=== PATIENT | female | born 1980 | race Caucasian/White ===

== ENCOUNTER 2021-01-06 14:00 | Inpatient (IN) | payer OTHER ==
[2021-01-06 14:26] VITALS: BMI 23.6
[2021-01-06 17:19] LABS: BASO % 0.6 % (0-2.0); EOS % 1.3 % (0-4.5); HEMATOCRIT 36.8 % (32.4-45.2); LYMPH % 33.9 % (8-40); MCH 26.3 pg (25.7-33.7); MCHC 32.6 g/dl (32.0-36.0); MEAN CELL VOLUME 80.7 fl (80-96); MEAN PLT VOLUME 9.1 fl (7.5-11.1); MONO % 5.7 % (3.8-10.2); NEUT % 58.5 % (42.8-82.8); PLATELET COUNT 220 10^3/uL (134-434); RBC 4.56 M/mm3 (3.60-5.2); RDW 16.7 % (11.6-15.6); WHITE BLOOD COUNT 7.4 K/mm3 (4.0-10.0)
[2021-01-06 17:31] LABS: CALCIUM 8.9 mg/dL (8.5-10.1)
[2021-01-06 17:32] LABS: BLOOD UREA NITROGEN 10.7 mg/dL (7-18)
[2021-01-06 17:35] LABS: CREATININE 0.6 mg/dL (0.55-1.3)
[2021-01-06 17:37] LABS: BILIRUBIN,TOTAL 0.4 mg/dL (0.2-1); TOT PROT 7.7 g/dl (6.4-8.2)
[2021-01-06 17:39] LABS: PHENCYCLIDINE,URINE NEGATIVE (NEGATIVE); URINE AMPHETAMINES NEGATIVE (NEGATIVE)
[2021-01-06 17:40] LABS: COCAINE, UR NEGATIVE (NEGATIVE); HCG,QUALITATIVE URINE Negative; METHADONE, UR NEGATIVE (NEGATIVE); OPIATES, URI NEGATIVE (NEGATIVE); URINE BARBITURATES NEGATIVE (NEGATIVE); URINE BENZODIAZEPINES NEGATIVE (NEGATIVE)
[2021-01-06 17:52] LABS: PH,URINE 5.5 (5.0-8.0); URINE APPEARANCE Clear; URINE BILIRUBIN Negative (NEGATIVE); URINE COLOR Yellow; URINE GLUCOSE (UA) Negative (NEGATIVE); URINE KETONE Negative (NEGATIVE); URINE LEUK ESTERASE 2+ (NEGATIVE); URINE NITRITE Negative (NEGATIVE); URINE PROTEIN Negative (NEGATIVE); URINE UROBILINOGEN 0.2 mg/dL (0.2-1.0)
[2021-01-06 20:13] LABS: EPI CELLS 0-3/HPF /HPF; URINE BACTERIA MANY /hpf (NEGATIVE); URINE RBC 2-5/HPF /hpf (0-4); URINE WBC 5-10/HPF (NEGATIVE)
[2021-01-07 07:29] LABS: BASO % 0.7 % (0-2.0); EOS % 1.9 % (0-4.5); HEMATOCRIT 35.3 % (32.4-45.2); HEMOGLOBIN 11.6 GM/dL (10.7-15.3); LYMPH % 28.9 % (8-40); MCH 26.2 pg (25.7-33.7); MCHC 32.8 g/dl (32.0-36.0); MEAN PLT VOLUME 8.8 fl (7.5-11.1); MONO % 8.5 % (3.8-10.2); PLATELET COUNT 192 10^3/uL (134-434); RBC 4.42 M/mm3 (3.60-5.2); RDW 16.9 % (11.6-15.6); WHITE BLOOD COUNT 4.5 K/mm3 (4.0-10.0)
[2021-01-07 07:49] LABS: BLOOD UREA NITROGEN 12.7 mg/dL (7-18); CALCIUM 8.5 mg/dL (8.5-10.1)
[2021-01-07 07:52] LABS: CHOLESTEROL 185 mg/dL (50-200)
[2021-01-07 07:53] LABS: CREATININE 0.6 mg/dL (0.55-1.3); PHOSPHOROUS 4.3 mg/dL (2.5-4.9); TRIGLYCERIDES 68 mg/dL (0-150)
[2021-01-07 07:54] LABS: LDL CHOLESTEROL (ONLY SJRH) 98 mg/dL (5-100)
[2021-01-07 07:55] LABS: HDL CHOLESTEROL 65 mg/dL (40-60)
[2021-01-07] MEDS: ENOXAPARIN NA (PORCINE) 40 MG/0.4 ML DISP.SYRIN SQ SCH (09:06)
[2021-01-07] MEDS: INSULIN SLIDING SCALE (NOVOLOG) 1 VIAL SQ SCH ×3 (11:06→21:38)
[2021-01-07] MEDS: PANTOPRAZOLE 40 MG TABLET PO SCH (12:05)
[2021-01-07] MEDS: methylPREDNISolone NA SUCC 125 MG/2 ML VIAL IVPB SCH ×3 (12:05→21:36)
[2021-01-08] MEDS: methylPREDNISolone NA SUCC 125 MG/2 ML VIAL IVPB SCH ×4 (03:08→21:46)
[2021-01-08] MEDS: INSULIN SLIDING SCALE (NOVOLOG) 1 VIAL SQ SCH ×4 (06:40→21:48)
[2021-01-08] MEDS: PANTOPRAZOLE 40 MG TABLET PO SCH (09:11)
[2021-01-08] MEDS: ENOXAPARIN NA (PORCINE) 40 MG/0.4 ML DISP.SYRIN SQ SCH (09:11)
[2021-01-08 09:55] LABS: HEMOGLOBIN 11.7 GM/dL (10.7-15.3); LYMPH % 2.4 % (8-40); MCH 25.6 pg (25.7-33.7); MCHC 31.6 g/dl (32.0-36.0); MEAN CELL VOLUME 81.1 fl (80-96); MEAN PLT VOLUME 9.3 fl (7.5-11.1); MONO % 0.6 % (3.8-10.2); PLATELET COUNT 229 10^3/uL (134-434); RBC 4.56 M/mm3 (3.60-5.2); RDW 16.9 % (11.6-15.6); WHITE BLOOD COUNT 18.9 K/mm3 (4.0-10.0)
[2021-01-08 10:18] LABS: CALCIUM 9.3 mg/dL (8.5-10.1)
[2021-01-08 10:19] LABS: ALBUMIN 3.6 g/dl (3.4-5.0); BLOOD UREA NITROGEN 12.1 mg/dL (7-18)
[2021-01-08 10:22] LABS: CREATININE 0.8 mg/dL (0.55-1.3)
[2021-01-08 10:24] LABS: BILIRUBIN,TOTAL 0.5 mg/dL (0.2-1)
[2021-01-08 10:42] LABS: ANISOCYTOSIS 2+; MACROCYTOSIS 0; PLATELET ESTIMATE NORMAL
[2021-01-08] MEDS ORDERED: DEXTROSE 5%-WATER - 50 ML IVPB ONE (12:16)
[2021-01-08] MEDS ORDERED: cefTRIAXone SODIUM 1 GM VIAL ONE (12:16)
[2021-01-08] MEDS: CEFTRIAXONE 1 GM in DEXTROSE 5%-WATER - 50 ML IVPB SCH (12:22)
[2021-01-09] MEDS: methylPREDNISolone NA SUCC 125 MG/2 ML VIAL IVPB SCH ×4 (04:15→21:49)
[2021-01-09] MEDS: INSULIN SLIDING SCALE (NOVOLOG) 1 VIAL SQ SCH ×4 (06:30→21:57)
[2021-01-09 07:46] LABS: BASO % 0.1 % (0-2.0); HEMATOCRIT 34.3 % (32.4-45.2); HEMOGLOBIN 11.2 GM/dL (10.7-15.3); LYMPH % 2.3 % (8-40); MCH 26.2 pg (25.7-33.7); MCHC 32.7 g/dl (32.0-36.0); MEAN CELL VOLUME 80.3 fl (80-96); MEAN PLT VOLUME 9.1 fl (7.5-11.1); MONO % 0.9 % (3.8-10.2); NEUT % 96.7 % (42.8-82.8); PLATELET COUNT 210 10^3/uL (134-434); RBC 4.27 M/mm3 (3.60-5.2); WHITE BLOOD COUNT 21.5 K/mm3 (4.0-10.0)
[2021-01-09 08:10] LABS: ALBUMIN 3.3 g/dl (3.4-5.0); CALCIUM 8.7 mg/dL (8.5-10.1)
[2021-01-09 08:11] LABS: BLOOD UREA NITROGEN 15.1 mg/dL (7-18)
[2021-01-09 08:13] LABS: CREATININE 0.6 mg/dL (0.55-1.3)
[2021-01-09 08:15] LABS: BILIRUBIN,TOTAL 0.3 mg/dL (0.2-1); PHOSPHOROUS 4.4 mg/dL (2.5-4.9); TOT PROT 6.5 g/dl (6.4-8.2)
[2021-01-09] MEDS ORDERED: cefTRIAXone SODIUM 1 GM VIAL ONE (09:01)
[2021-01-09] MEDS ORDERED: DEXTROSE 5%-WATER - 50 ML IVPB ONE (09:01)
[2021-01-09] MEDS: PANTOPRAZOLE 40 MG TABLET PO SCH (09:28)
[2021-01-09] MEDS: CEFTRIAXONE 1 GM in DEXTROSE 5%-WATER - 50 ML IVPB SCH (09:28)
[2021-01-09] MEDS: ENOXAPARIN NA (PORCINE) 40 MG/0.4 ML DISP.SYRIN SQ SCH (09:28)
[2021-01-09 10:08] LABS: ANISOCYTOSIS 0; MACROCYTOSIS 0; PLATELET ESTIMATE NORMAL
[2021-01-09] MEDS: POLYETHYLENE GLYCOL (HEALTHYLAX) 3350 17 GM PACKET PO SCH (12:45)
[2021-01-10] MEDS: methylPREDNISolone NA SUCC 125 MG/2 ML VIAL IVPB SCH ×4 (04:06→21:40)
[2021-01-10 07:51] LABS: HEMATOCRIT 32.3 % (32.4-45.2); HEMOGLOBIN 10.7 GM/dL (10.7-15.3); LYMPH % 2.5 % (8-40); MCH 26.3 pg (25.7-33.7); MEAN CELL VOLUME 79.7 fl (80-96); MEAN PLT VOLUME 9.1 fl (7.5-11.1); NEUT % 96.5 % (42.8-82.8); PLATELET COUNT 193 10^3/uL (134-434); RBC 4.05 M/mm3 (3.60-5.2); RDW 16.6 % (11.6-15.6); WHITE BLOOD COUNT 15.8 K/mm3 (4.0-10.0)
[2021-01-10 07:53] LABS: INR 1.03 (0.83-1.09); PROTHROMBIN TIME (PATIENT) 12.5 SEC (9.7-13.0)
[2021-01-10 07:56] LABS: ACTIVATED PTT 23.6 SECONDS (25.2-36.5)
[2021-01-10 07:59] LABS: BLOOD UREA NITROGEN 15.6 mg/dL (7-18); CALCIUM 8.6 mg/dL (8.5-10.1)
[2021-01-10] MEDS: INSULIN SLIDING SCALE (NOVOLOG) 1 VIAL SQ SCH ×4 (07:59→22:30)
[2021-01-10 08:00] LABS: MAGNESIUM 2.1 mg/dL (1.8-2.4)
[2021-01-10 08:03] LABS: CREATININE 0.6 mg/dL (0.55-1.3); PHOSPHOROUS 4.1 mg/dL (2.5-4.9)
[2021-01-10 08:57] LABS: ANISOCYTOSIS 0; HELMET CELLS 0; HOWELL-JOLLY BODIES 0; MACROCYTOSIS 0; OVALOCYTE 0; PLATELET ESTIMATE NORMAL; ROULEAU 0; SICKELED CELLS 0; TARGET CELLS 0; TEAR DROP CELLS 0; TOXIC GRANULATION 0
[2021-01-10] MEDS ORDERED: DEXTROSE 5%-WATER - 50 ML IVPB ONE (09:47)
[2021-01-10] MEDS ORDERED: cefTRIAXone SODIUM 1 GM VIAL ONE (09:47)
[2021-01-10] MEDS: CEFTRIAXONE 1 GM in DEXTROSE 5%-WATER - 50 ML IVPB SCH (09:59)
[2021-01-10] MEDS: PANTOPRAZOLE 40 MG TABLET PO SCH (09:59)
[2021-01-10] MEDS: POLYETHYLENE GLYCOL (HEALTHYLAX) 3350 17 GM PACKET PO SCH (09:59)
[2021-01-10] MEDS ORDERED: ACETAMINOPHEN 1000 MG/100 ML VIAL (NON FORMULARY) IVPB PRN (11:01)
[2021-01-11] MEDS: methylPREDNISolone NA SUCC 125 MG/2 ML VIAL IVPB SCH ×4 (02:52→22:00)
[2021-01-11 07:32] LABS: BASO % 0.1 % (0-2.0); HEMATOCRIT 36.1 % (32.4-45.2); HEMOGLOBIN 11.9 GM/dL (10.7-15.3); LYMPH % 3.5 % (8-40); MCH 26.5 pg (25.7-33.7); MCHC 32.9 g/dl (32.0-36.0); MEAN CELL VOLUME 80.5 fl (80-96); MEAN PLT VOLUME 8.8 fl (7.5-11.1); MONO % 0.8 % (3.8-10.2); NEUT % 95.6 % (42.8-82.8); PLATELET COUNT 204 10^3/uL (134-434); RBC 4.48 M/mm3 (3.60-5.2); RDW 16.8 % (11.6-15.6)
[2021-01-11] MEDS: INSULIN SLIDING SCALE (NOVOLOG) 1 VIAL SQ SCH ×4 (07:55→22:29)
[2021-01-11 08:03] LABS: CALCIUM 8.6 mg/dL (8.5-10.1)
[2021-01-11 08:04] LABS: BLOOD UREA NITROGEN 16.5 mg/dL (7-18)
[2021-01-11 08:20] LABS: CREATININE 0.7 mg/dL (0.55-1.3)
[2021-01-11] MEDS ORDERED: DEXTROSE 5%-WATER - 50 ML IVPB ONE (09:14)
[2021-01-11] MEDS ORDERED: cefTRIAXone SODIUM 1 GM VIAL ONE (09:14)
[2021-01-11] MEDS: POLYETHYLENE GLYCOL (HEALTHYLAX) 3350 17 GM PACKET PO SCH (09:16)
[2021-01-11] MEDS: CEFTRIAXONE 1 GM in DEXTROSE 5%-WATER - 50 ML IVPB SCH (09:16)
[2021-01-11] MEDS: PANTOPRAZOLE 40 MG TABLET PO SCH (09:16)
[2021-01-11 10:04] LABS: ANISOCYTOSIS 0; HELMET CELLS 0; HOWELL-JOLLY BODIES 0; MACROCYTOSIS 0; OVALOCYTE 0; PLATELET ESTIMATE NORMAL; ROULEAU 0; SICKELED CELLS 0; TARGET CELLS 0; TEAR DROP CELLS 0; TOXIC GRANULATION 0
[2021-01-11 14:16] LABS: CSF COLOR COLORLESS
[2021-01-11 14:17] LABS: CSF APPEARANCE CLEAR; CSF WBC 1
[2021-01-11 23:00] LABS: BF GLUCOSE (CSF ONLY) 84 mg/dL (40-70)
[2021-01-12] MEDS: methylPREDNISolone NA SUCC 125 MG/2 ML VIAL IVPB SCH ×3 (03:20→15:36)
[2021-01-12] MEDS: INSULIN SLIDING SCALE (NOVOLOG) 1 VIAL SQ SCH ×2 (07:43→11:49)
[2021-01-12 08:51] LABS: HEMATOCRIT 34.4 % (32.4-45.2); HEMOGLOBIN 11.3 GM/dL (10.7-15.3); LYMPH % 4.5 % (8-40); MCH 26.3 pg (25.7-33.7); MCHC 32.9 g/dl (32.0-36.0); MEAN CELL VOLUME 80.2 fl (80-96); MEAN PLT VOLUME 9.2 fl (7.5-11.1); MONO % 1.1 % (3.8-10.2); NEUT % 94.4 % (42.8-82.8); PLATELET COUNT 184 10^3/uL (134-434); RBC 4.29 M/mm3 (3.60-5.2); RDW 17.2 % (11.6-15.6); WHITE BLOOD COUNT 7.9 K/mm3 (4.0-10.0)
[2021-01-12 09:08] LABS: ALBUMIN 2.8 g/dl (3.4-5.0); BLOOD UREA NITROGEN 16.7 mg/dL (7-18); CALCIUM 8.2 mg/dL (8.5-10.1); CREATININE 0.6 mg/dL (0.55-1.3); MAGNESIUM 2.3 mg/dL (1.8-2.4)
[2021-01-12 09:11] LABS: PHOSPHOROUS 4.6 mg/dL (2.5-4.9)
[2021-01-12 09:13] LABS: BILIRUBIN,TOTAL 0.4 mg/dL (0.2-1); TOT PROT 5.8 g/dl (6.4-8.2)
[2021-01-12] MEDS ORDERED: methylPREDNISolone NA SUCC 125 MG/2 ML VIAL IVPB ONE (09:29)
[2021-01-12] MEDS ORDERED: cefTRIAXone SODIUM 1 GM VIAL ONE (10:04)
[2021-01-12] MEDS ORDERED: DEXTROSE 5%-WATER - 50 ML IVPB ONE (10:04)
[2021-01-12] MEDS: POLYETHYLENE GLYCOL (HEALTHYLAX) 3350 17 GM PACKET PO SCH (10:16)
[2021-01-12] MEDS: ENOXAPARIN NA (PORCINE) 40 MG/0.4 ML DISP.SYRIN SQ SCH (10:16)
[2021-01-12] MEDS: PANTOPRAZOLE 40 MG TABLET PO SCH (10:16)
[2021-01-12 10:46] LABS: ANISOCYTOSIS 0; MACROCYTOSIS 0; PLATELET ESTIMATE NORMAL
[2021-01-12] MEDS: CEFTRIAXONE 1 GM in DEXTROSE 5%-WATER - 50 ML IVPB SCH (10:54)
[2021-01-12] MEDS ORDERED: ACETAMINOPHEN 325 MG TABLET (FP) PO ONE (14:00)
[2021-01-12] MEDS ORDERED: PT OWN MED DRAWER 7, Y5N ONE (14:21)
[2021-01-12 15:14] VITALS: BP 128/83; PULSE 82; TEMP 97.9
[2021-01-13 18:07] LABS: BABESIA MICROTI ANTIBODY IGG <1:10 (Neg:<1:10); BABESIA MICROTI ANTIBODY IGM <1:10 (Neg:<1:10)
[2021-01-14 13:07] LABS: ALBUMIN SERUM 3.8 g/dL (3.8-4.8); CSF IGG INDEX 0.8 (0.0-0.7); IGG QN CSF 3.1 mg/dL (0.0-6.7); IGG/ALB RATIO CSF 0.22 (0.00-0.25)
[2021-01-14 17:07] LABS: MYELIN BASIC PROTEIN,CSF 5.8 ng/mL (0.0-3.7)
== END 2021-01-12 16:19 | disposition home or self-care (01) | DRG 43 ==
LOC: JER 14:00 → JERBED 19:04 → J6S 21:32
PROVIDERS: ADMIT Internal Medicine; ATTEND Student in an Organized Health Care Education/Training Program
PROC: 009U3ZX Drainage of Spinal Canal, Percutaneous Approach, Diagnostic (ICD-10-PCS; principal; 2021-01-10)
PROC: 009U3ZX Drainage of Spinal Canal, Percutaneous Approach, Diagnostic (ICD-10-PCS; 2021-01-11)
PROC: B01BZZZ Fluoroscopy of Spinal Cord (ICD-10-PCS; 2021-01-11)
DX: G35 Multiple sclerosis (principal); J45.909 Unspecified asthma, uncomplicated; F17.210 Nicotine dependence, cigarettes, uncomplicated; F12.10 Cannabis abuse, uncomplicated; R26.89 Other abnormalities of gait and mobility; N39.0 Urinary tract infection, site not specified; B96.20 Unspecified Escherichia coli [E. coli] as the cause of diseases classified elsewhere; D72.829 Elevated white blood cell count, unspecified; E16.0 Drug-induced hypoglycemia without coma; T38.0X5A Adverse effect of glucocorticoids and synthetic analogues, initial encounter; K59.09 Other constipation; H53.8 Other visual disturbances; G37.8 Other specified demyelinating diseases of central nervous system; R25.1 Tremor, unspecified
CPT/HCPCS: 36415; 62272; 70450-TC; 70551-TC; 70552-TC; 71045-TC-FY; 72141-TC; 72142-TC; 72157-TC; 72158-TC; 73560-TC-LT-FY; 73560-TC-RT-FY; 76098-TC-FY; 77002-TC-FY; 80048; 80053; 80061; 80307; 81003; 82784; 82787; 82945; 82962; 83721; 83735; 83873; 83916; 84100; 84157; 84443; 84703; 85025; 85610; 85730; 86618; 86753; 87086; 87186; 87899; 93005; 93010; 97116-GP; 97162-GP; 99285-25; A9579; C9803; J0131; U0003; U0005

== ENCOUNTER 2021-02-02 12:00 | Emergency (ER) | payer OTHER ==
[2021-02-02 12:33] VITALS: BP 104/66; PULSE 77; TEMP 98.3
[2021-02-02 13:25] LABS: EPI CELLS 16 /uL (0-25.1); HCG,QUALITATIVE URINE Negative; HYALINE CASTS 0 /uL (0-3.1); URINE APPEARANCE CLEAR; URINE BACTERIA 7870 /uL (0-1359); URINE BILIRUBIN NEGATIVE (NEGATIVE); URINE COLOR YELLOW; URINE GLUCOSE (UA) NEGATIVE (NEGATIVE); URINE KETONE NEGATIVE (NEGATIVE); URINE LEUK ESTERASE 1+ (NEGATIVE); URINE NITRITE POSITIVE (NEGATIVE); URINE PROTEIN NEGATIVE (NEGATIVE); URINE RBC 9 /uL (0-23.9); URINE UROBILINOGEN 0.2 mg/dL (0.2-1.0); URINE WBC 8 /uL (0-25.8)
[2021-02-02 13:28] LABS: YEAST NON SEEN (NEGATIVE)
== END 2021-02-02 15:35 | disposition home or self-care (01) ==
LOC: JERFT 12:00
DX: N30.00 Acute cystitis without hematuria (principal)
CPT/HCPCS: 36415; 76830-TC; 81003; 84703; 87086; 87186; 87491; 87591; 99284-25

== ENCOUNTER 2022-02-28 07:14 | Emergency (ER) | payer OTHER ==
[2022-02-28 07:33] VITALS: BP 98/61; PULSE 72; RESP 18; TEMP 98.1; BMI 24.1
[2022-02-28] MEDS ORDERED: IBUPROFEN 600 MG TABLET (FP) PO ONE ×2 (08:14→08:16)
[2022-02-28] MEDS ORDERED: IBUPROFEN 400 MG TABLET (FP) PO ONE (08:15)
== END 2022-02-28 08:26 | disposition home or self-care (01) ==
LOC: JERFT 07:14 → JER 07:14 → JERFT 08:26
DX: S92.534A Nondisplaced fracture of distal phalanx of right lesser toe(s), initial encounter for closed fracture (principal); W22.09XA Striking against other stationary object, initial encounter
CPT/HCPCS: 73660-TC-FY; 99283-25

== ENCOUNTER 2023-12-18 08:54 | Emergency (ER) | payer OTHER ==
[2023-12-18 09:34] VITALS: BP 104/62; PULSE 80; RESP 20; TEMP 98.6; BMI 23.6
== END 2023-12-18 10:16 | disposition home or self-care (01) ==
LOC: JERFT 08:54
DX: L73.1 Pseudofolliculitis barbae (principal)
CPT/HCPCS: 99283-25

== ENCOUNTER 2025-04-20 11:01 | Emergency (ER) | payer OTHER ==
[2025-04-20 11:12] VITALS: BP 119/78; PULSE 62; RESP 18; TEMP 97.7; BMI 21.6
[2025-04-20 12:16] LABS: ABSOLUTE IMMATURE GRANULOCYTES 0.02 x10^3/uL (0.0-0.031); BASOPHILS # 0.03 x10^3/uL (0.01-0.08); EOSINOPHIL % 1.2 % (0.7-5.8); EOSINOPHILS # 0.06 x10^3/uL (0.04-0.36); MCHC 30.6 g/dl (32.2-35.5); MEAN CELL VOLUME 75.8 fl (79.4-94.8); MEAN PLT VOLUME 10.3 fl (9.4-12.3); MONOCYTE # 0.30 x10^3/uL (0.24-0.86); MONOCYTE % 6.2 % (4.7-12.5); RDW 18.2 % (12.2-17.1)
[2025-04-20 12:48] LABS: GLUCOSE,RANDOM 88.0 mg/dL (74-106); TOT PROT 6.1 g/dl (6.4-8.2)
[2025-04-20 12:49] LABS: CO2 25.0 mmol/L (21-32)
[2025-04-20 12:51] LABS: ALK PHOS 49.0 U/L (40-150)
[2025-04-20 12:53] LABS: SGOT/AST 19.0 U/L (5-34); SGPT/ALT 16.0 U/L (0-55)
[2025-04-20 12:54] LABS: CREATININE 0.62 mg/dL (0.55-1.3)
[2025-04-20 13:14] LABS: HCV DIAGNOSTIC IN-HOUSE W/RFLX NON-REACTIVE (NONREACTIVE); HIV INTERPRETATION NEGATIVE (NEGATIVE)
== END 2025-04-20 14:02 | disposition home or self-care (01) ==
LOC: JER 11:01
DX: R53.83 Other fatigue (principal); R53.1 Weakness
CPT/HCPCS: 36415; 80053; 83735; 84703; 85025; 86803; 87389; 99283-25